=== PATIENT | male | born 1945 | race Caucasian/White ===

== ENCOUNTER 2017-08-26 11:10 | Outpatient (CLI) | payer MEDICARE, OTHER ==
[2017-08-26 11:58] LABS: Anion Gap 14 mmol/L (10-20); BUN (Urea Nitrogen) 12 mg/dL (8.4-25.7); Calc. Creatinine Clearance 0 mL/min (70-130); Calcium 9.3 mg/dL (7.8-10.44); Carbon Dioxide 27 mmol/L (23-31); Chloride 102 mmol/L (98-107); Estimated GFR-MDRD Greater than 90
--- NOTE | 2017-08-26 15:54 | ULT ---
RENAL ULTRASOUND: History: Renal cyst. Renal calculi. Comparison: 11-07-16 Technique: Longitudinal and transverse imaging of the kidneys is performed. FINDINGS: Right kidney: There is renal cortical thinning. No hydronephrosis. Right kidney measures 10.5 x 6.2 x 5.7 cm. There is an exophytic anechoic focus emanating from the midpole of the right kidney measur ing 1.6 x 1.7 x 2.5 cm. Through transmission is noted. Simple cyst is favored. Left kidney: Mild renal cortical thinning. No hydronephrosis. Left kidney measures 4.9 x 4.9 x 10.2 cm. There is a 1.4 x 1.1 x 1.3 cm exophytic hypoechoic focus emanating from the left renal cortex. C omparison made with examination from 04-03-16 demonstrates that the lesion in the left kidney has not changed in size. Previously the lesion measured 1.7 x 1.2 x 1.3 cm. Lesion does not have sonographic features compatible with a simple cyst. Correlation made with CT ab domen without contrast from 11-15-16 suggests possible complex cystic lesion. Continued surveillance i s recommended. Urinary bladder is unremarkable. IMPRESSION: 1. Essentially stable simple cyst in right kidney. 2. Stable slightly complex cystic lesion in the left kidney. POS: [facility]
--- NOTE | 2017-08-26 15:57 | RAD ---
ONE VIEW ABDOMEN: Comparison: 04-03-16 History: Neurogenic bladder. Frequent urination. Comparison: None. FINDINGS: Nonspecific bowel gas pattern. Fecal material in a nondistended, nondilated loop of colon. Pain pump is noted. Osseous structures are unremarkable. IMPRESSION: Nonspecific bowel gas pattern. No evidence of calcification projecting over either renal silhouette. Evaluation is limited by overlying bowel gas and fecal material. POS: [facility]
== END 2017-08-26 11:11 | disposition home or self-care (01) ==
LOC: RAD 11:10
PROVIDERS: ATTEND Urology
DX: N28.1 Cyst of kidney, acquired (principal); N31.9 Neuromuscular dysfunction of bladder, unspecified; Z87.442 Personal history of urinary calculi
CPT/HCPCS: 36415; 74000; 76770; 80048

== ENCOUNTER 2018-03-20 14:49 | Outpatient (CLI) | payer MEDICARE, OTHER | END 2018-03-20 14:50 | disposition home or self-care (01) | LOC: BICCT 14:49 | PROVIDERS: ATTEND Allergy & Immunology | DX: J32.9 Chronic sinusitis, unspecified (principal) ==

== ENCOUNTER 2018-05-27 08:43 | Outpatient (CLI) | payer MEDICARE, OTHER ==
[2018-05-27 09:56] LABS: Anion Gap 13 mmol/L (10-20); BUN (Urea Nitrogen) 11 mg/dL (8.4-25.7); Calc. Creatinine Clearance 0 mL/min (70-130); Calcium 9.5 mg/dL (7.8-10.44); Carbon Dioxide 30 mmol/L (23-31); Chloride 101 mmol/L (98-107); Estimated GFR-MDRD 85; Glucose 106 mg/dL (83-110); Potassium 3.6 mmol/L (3.5-5.1); Sodium 140 mmol/L (136-145)
--- NOTE | 2018-05-27 10:24 | ULT ---
ULTRASOUND RETROPERITONEUM COMPLETE: (RENAL) DATE: 05/27/18. HISTORY: A 73-year-old male. N31.9, neurogenic bladder. R35.0, frequency of urination and polyuria. Z87.442, history of renal calculi. N28.1, hyperdense renal cyst. FINDINGS: Right kidney 10.5 x 6 x 6.5 cm. Left kidney 10.5 x 5 x 5 cm. No hydronephrosis bilaterally. A 3 cm round simple cyst exophytically protruding from the cortex of right renal mid pole. 1.5 x 1 x 1 cm exophytic cyst protruding from upper pole cortex of left kidney. Unremarkable appearance of urinary bladder. Prevoid bladder volume 100 mL. Compared to renal ultrasound of 08/26/17, the right renal cyst has grown. It is currently demonstrat ed to be a simple cyst. The smaller, exophytic left renal cyst demonstrated on the current study may or may not be the same o ne as the one on the previous study. A followup CT would be useful, for more objective comparison with prior renal lesions of the prior CT of 11/15/16. IMPRESSION: 1. Bilateral renal cysts visualized on ultrasound, one on each side, with interval growth. 2. No aggressive features identified on ultrasound. 3. Consider followup CT, in order to account for additional cysts, and for more objective comparison of measurements of these lesions. GENIA Renee POS: [facility]
--- NOTE | 2018-05-27 10:29 | RAD ---
ABDOMEN ONE VIEW: History: Neurogenic bladder. Comparison: 08-26-17 FINDINGS: Large amount of stool throughout the colon. Small bowel gas pattern is nonspecific. Renal outlines mo stly obscured. No calcifications are reliably demonstrated along the course of either urinary system. Injection granulomata overlie the left gluteal tissues. Vertebroplasty cement at the T12 level. Osse ous structures are demineralized. IMPRESSION: 1. Constipation. 2. Osteoporosis. POS: [facility]
== END 2018-05-27 08:44 | disposition home or self-care (01) ==
LOC: ULT 08:43
PROVIDERS: ATTEND Urology
DX: N31.9 Neuromuscular dysfunction of bladder, unspecified (principal); N28.1 Cyst of kidney, acquired; K59.00 Constipation, unspecified; M81.0 Age-related osteoporosis without current pathological fracture; Z87.442 Personal history of urinary calculi
CPT/HCPCS: 36415; 74018; 76770; 80048

== ENCOUNTER 2019-05-27 12:20 | Outpatient (CLI) | payer MEDICARE, OTHER ==
--- NOTE | 2019-05-27 15:07 | MRI ---
MRI LUMBAR SPINE WITHOUT CONTRAST: INDICATION: Lumbar pain. FINDINGS: Comparison is made to MRI lumbar spine dated 11/15/2016. Vertebroplasty changes are now noted at T12 vertebra since the prior study. Mild superior end plate compression. There is a small node involving the superior end plate which was noted previously. The lumbar vertebrae maintain normal height. There are degenerative disk changes throughout. There is loss of disk space at L3-4, L4-5, and L5-S1. Anterolisthesis at L3-4 and L4-5 is noted and appear s stable from prior study. At T12-L1, no significant disk bulge or protrusion. No central canal or foraminal stenosis. At L1-2, no significant disk bulge. No central canal or foraminal stenosis. At L2-3, mild broad-based disk bugle is unchanged from prior exam. There is moderate facet and ligam entous hypertrophy and these changes result in mild central canal stenosis. At L3-4, there is an anterolisthesis measured at 4-5 mm, stable from prior exam. Disk bulge flattens the thecal sac. Facet and ligamentous hypertrophy is present. Mild to moderate central canal steno sis. No significant foraminal stenosis, although asymmetric disk bulge on the left does encroach int o the left foramina. At L4-5, there is a grade I anterolisthesis. Diffuse disk bulge with evidence of small central protr usion. These changes compress the thecal sac and are associated with posterior hypertrophic changes. Moderate central canal stenosis. Mild foraminal narrowing due to disk bulge, facet hypertrophy, an d the associated listhesis. At L5-S1, there is an annular fissure with a small focal disk protrusion paracentrally to the right f lattening the anterior thecal sac and slightly displacing the traversing right S1 nerve root. Mild c entral canal stenosis. This does not appear significantly changed from prior exam. IMPRESSION: 1. Degenerative disk changes at all levels of the lumbar spine at the level of L1. Anterolisthesis at L3-4 and L4-5 with central canal and foraminal stenosis described above. Small asymmetric protrus ion to the right at L5-S1 as noted above. 2. Vertebroplasty changes at T12 since the prior exam. Otherwise, no significant change in the appe arance of the lumbar spine. POS: [facility]
== END 2019-05-27 12:21 | disposition home or self-care (01) ==
LOC: SCSMRI 12:20
PROVIDERS: ATTEND Anesthesiology
DX: M51.17 Intervertebral disc disorders with radiculopathy, lumbosacral region (principal); M43.16 Spondylolisthesis, lumbar region; M48.061 Spinal stenosis, lumbar region without neurogenic claudication; M48.07 Spinal stenosis, lumbosacral region
CPT/HCPCS: 72148

== ENCOUNTER 2020-03-29 15:38 | Inpatient (IN) | payer MEDICARE, OTHER ==
[~2020-03-29 15:38] MED LIST: Iopamidol-370 76% 500 ML 1 ML ONE
[2020-03-29] MEDS ORDERED: Midazolam HCl 5 mg/ml Vial ONE ×2 (16:01→16:13)
[2020-03-29] MEDS ORDERED: Succinylcholine Chloride 20 MG/ML 10 ml SYRINGE FS ONE (16:01)
[2020-03-29] MEDS ORDERED: fentaNYL Citrate/PF 2,000 MCG in Sodium Chloride 0.9% 60 ML IV SCH (16:22)
[2020-03-29] MEDS ORDERED: Propofol 1,000 MG/100 ML VIAL IV ONE (16:29)
[2020-03-29 16:55] LABS: Actual Bicarbonate (HCO3a) 19.7 mEq/L (22-28); Base Excess (BEa) -3.5 mEq/L (-2.0 to +3.0); CO2 Tension 30.8 mmHg (35.0-45.0); Carboxyhemoglobin (COHb) 0.1 gm% (0.0-3.0); Hemoglobin (Hb) 14.2 g/dL (14.0-18.0); O2 Tension (PaO2), arterial 112.5 mmHg (> 70.0); pH, Arterial 7.42 (7.35-7.45)
[2020-03-29 16:56] LABS: Analyzer IN Cardio ER; Calcium, Ionized (arterial) 1.06 mmol/L (1.12-1.30); Potassium - ABG Lab 3.14 mmol/L (3.70-5.30); Puncture Site RRA
--- NOTE | 2020-03-29 19:01 | CT ---
CT HEAD WITHOUT IV CONTRAST COMPARISON: 03/29/2020 1231% HISTORY: Altered mental status. Follow-up evaluation. TECHNIQUE: Axial CT imaging at 5 mm intervals from vertex through skull base without contrast FINDINGS: Mild cerebral volume loss is present. There is no evidence of an acute infarction, hemorrhage, mass e ffect, or midline shift. The ventricular system is normal in size, shape, and position. Endotracheal and orogastric tubes are noted in place. The orogastric tube is coiled in the posterior pharynx. A mucus retention cyst is again seen in the right maxillary antrum. Mucosal thickening is seen involving the ethmoidal air cells bilaterally with minimal mucosal thickening in the right front al sinus. Osseous structures appear intact.There is evidence of anterior cervical fusion lower cervical spine. No other interval change from the prior exam. IMPRESSION: 1. No acute intracranial abnormality demonstrated.
--- NOTE | 2020-03-29 19:24 | CT ---
EXAM: CT chest, abdomen, and pelvis with IV contrast: HISTORY: Altered mental status. COMPARISON: Noncontrast CT abdomen and pelvis on 11/15/2016 FINDINGS: CT THORAX: Lungs: Dependent parenchymal densities are seen posteriorly at each lung base most likely attributabl e to atelectasis. Pneumonitis cannot be entirely excluded. Linear scarring versus atelectasis is present in the right upper lobe. Pleura: No pleural effusion. Lymph nodes: No lymphadenopathy. Mediastinum: Orogastric and endotracheal tubes are noted in place. Tip of the endotracheal tube termi nates just above the level of the rob. Tip of the orogastric tube is in the proximal body of the stomach. Vascular calcifications are seen in the thoracic aorta and involving the coronary arteries. The thoracic aorta is normal in caliber without evidence of an aortic dissection. Chest wall: No abnormalities CT ABDOMEN AND PELVIS: Liver: Within normal limits. Gallbladder: Distended measuring 11 cm in length. No adjacent inflammatory stranding is seen.\ Pancreas: Within normal limits. Spleen: Within normal limits. Adrenal glands: Within normal limits. Kidneys: A 2.9 cm exophytic hypodense lesion is seen at the junction of the midportion and superior p ole right kidney with smaller exophytic hypodense lesion seen anterior aspect midportion right kidney. These lesions were seen on the study in 2017; although, the larger lesion is slightly larger in size. The larger cyst lesion does not demonstrate an attenuation coefficient compatible with a simple cyst based on this exam. Small exophytic hypodense lesion is seen in the midportion left kidne y with additional subcentimeter too small to characterize hypodense lesions in the left kidney. This exophytic lesion is stable compared to prior exam. No enhancing lesion is appreciated. Urinary Bladder: Quintana catheter in place, the urinary bladder is decompressed. Reproductive organs: Within normal limits for patient's age. Bowel: Small amount retained fecal material seen throughout the colon. Loops of small bowel are zahraa l in caliber Adenopathy:No lymphadenopathy within the abdomen or pelvis. Peritoneum: No free fluid or fluid collection is seen. No free intraperitoneal gas is identified. Abdominal wall: A neural stimulating device is again seen overlying the soft tissues lower lateral ri ght flank with lead extending to the level of the T7 vertebral body Osseous structures: Vertebroplasty changes are seen involving the compression fracture of the T12 michelle tebral body. Degenerative change are seen in the lumbar spine, and there is grade 1 anterolisthesis of L3 on L4 and to a greater extent L4 on L5 with anterolisthesis at the L4-5 level measuring approxi mately 8 to 9 mm. There is partial visualization of postoperative changes related to anterior cervical fusion lower cervical spine. IMPRESSION: 1. Nonspecific distention of the gallbladder without adjacent inflammatory changes. 2. Bibasilar parenchymal densities most likely attributable to atelectasis. However, pneumonia at eit her lung base is a possibility. 3. Subcentimeter difficult to characterize hypodense lesions involving each kidney. There is a larger hypodense lesion midportion right kidney which is slightly larger in size compared to study in 2017. However, this does not demonstrate attenuation coefficient compatible with a simple cyst. Follo w-up CT scan examination with and without IV contrast is recommended. 4. Degenerative changes lumbar spine with grade 1 anterolisthesis of L3 on L4 and L4 on L5. 5. Additional findings as described above.
[2020-03-29] MEDS ORDERED: Azithromycin 500 MG VIAL ONE (19:47)
--- NOTE | 2020-03-29 20:50 | PDOC.HHP ---
Hospitalist HPI - History of Present Illness AMS, low grade fever 100.9 History of Present Illness: Patient with PMH of chronic pain and polypharmacy per EHR review presents to ED for evaluation of AMS. History is very limited due to clinical status; currently intubated as sedated. Per history obtained from son at bedside patient was noted this morning to be confused and somewhat lethargic. According to son to his knowledge patient had not been sick or had reported any kind of complaint. No known sick contacts or high risk exposures. During my assessment patient is sedated/intubated which was undertaken due to lethargy and anticipated airway compromise. Initial work up reports low grade temp of 100.9 rectally and slight elevation of troponin at 0.157. CT head is negative for acute pathology. CT chest show bilateral infiltrates atelectasis vs pneumonia. Hospitalist ROS - Review of Systems ROS unobtainable: due to endotracheal tube - Exam General - other findings: Intubated/sedated Eye: anicteric sclera ENT: normocephalic atraumatic, moist mucosa Neck: supple, no JVD Heart: RRR, no murmur, no gallops Respiratory: CTAB, normal chest expansion Gastrointestinal: soft, non-distended, normal bowel sounds Extremities: no cyanosis, no clubbing Extremities - other findings: Several areas of echymosis noted Skin: normal turgor Neurological - other findings: Sedated Musculoskeletal: normal tone Psychiatric - other findings: Sedated Hospitalist Results - Labs Lab results: ABG pH 7.42 (7.35-7.45) 03/29/20 16:50 ABG pCO2 30.8 mmHg (35.0-45.0) L 03/29/20 16:50 ABG pO2 112.5 mmHg (> 70.0) H 03/29/20 16:50 - Radiology Interpretation CT scan - chest Status: image reviewed by me (Bilateral infiltrates atelectasis vs pneumonia vs pneumonitis) Hospitalist H&P A/P - Plan Plan: Problem List 1. Altered mental status 2. Abnormal CT chest 3. Polypharmacy 4. History of chronic pain 5. S/p intubation 6. Elevated troponin Assessment and Plan 1. Altered mental status - admit to critical care; currently intubated/sedate - unclear etiology differentials include infectious vs polypharmacy vs other - IV ABX: Ceftriaxone, Vancomycin, Azithromycin to cover PNA & [employer] - follow up blood cultures, check pro-calcitonin - if fever spikes and pro-agustín elevated consider lumbar puncture 2. Abnormal CT chest - differentials include pneumonia vs atelectasis - continue with IV ABX per above plan - COVID19 rule out 3. Polypharmacy - polypharmacy remains in differential as cause of AMS - awaiting med reconciliation 4. History of chronic pain - holding PO medications - awaiting med reconciliation 5. S/p intubation - ABG in AM - weaning per protocol - pulmonary CC consulted 6. Elevated troponin - suspecting demand in setting of above - trend troponin DVT PPX: Lovenox FULL CODE
[2020-03-29] MEDS ORDERED: Acetaminophen 650 MG Suppository PR PRN (22:05)
[2020-03-29] MEDS ORDERED: Electrolyte Replacement Protoc 1 EACH EACH IVPB ONE (22:05)
[2020-03-29] MEDS ORDERED: Ondansetron PF 4 MG/2 ML Vial IVP PRN (22:05)
[2020-03-29] MEDS ORDERED: Ventilator Sedation Protocol 1 EACH FS SCH (22:15)
[2020-03-29] MEDS ORDERED: DISCONTINUE PREVIOUS NARCOTIC PAIN MEDICATIONS AND BENZODIAZEPINES FS SCH (22:22)
[2020-03-29] MEDS ORDERED: Propofol BOLUS 1,000 MG/100 ML VIAL IV PRN (22:22)
[2020-03-29] MEDS ORDERED: Lorazepam 2 MG/ML VIAL SLOW IVP PRN (22:22)
[2020-03-29] MEDS ORDERED: Fentanyl BOLUS 250 ML IVPB PRN (22:22)
[2020-03-29] MEDS ORDERED: Morphine 2 MG/ML SYRINGE SLOW IVP PRN (22:22)
[2020-03-29] MEDS ORDERED: Potassium Phosphate 12 MMOL in Sodium Chloride 0.9% 250 ML 250 ML IV PRN (22:27)
[2020-03-29] MEDS ORDERED: Potassium Chloride 20 MEQ TAB PO PRN (22:27)
[2020-03-29] MEDS ORDERED: Magnesium Oxide 400 MG TAB PO PRN ×2 (22:27)
[2020-03-29] MEDS ORDERED: Potassium Phosphate 9 MMOL in Sodium Chloride 0.9% 100 ML IVPB PRN (22:27)
[2020-03-29] MEDS ORDERED: PHOS-NAK 1 PKT PACK PO PRN ×2 (22:27)
[2020-03-29] MEDS ORDERED: Magnesium 2 GM/50 ML 2 GM in Premix Bag 1 BAG IVPB PRN (22:27)
[2020-03-29] MEDS ORDERED: Potassium Chloride 40 MEQ in Premix Bag 1 BAG IVPB PRN (22:27)
[2020-03-29] MEDS ORDERED: Potassium Chloride 40 MEQ in Sodium Chloride 0.9% 250 ML 250 ML IVPB PRN (22:27)
[2020-03-29] MEDS ORDERED: Potassium Phosphate 15 MMOL in Sodium Chloride 0.9% 250 ML 250 ML IV PRN (22:27)
[2020-03-29] MEDS ORDERED: ELECTROLYTE REPLACEMENT PROTOCOL FS PRN (22:27)
[2020-03-29 22:49] LABS: Troponin I 0.157 ng/mL (< 0.028)
[2020-03-29] MEDS: Propofol 1,000 MG/100 ML VIAL IV PRN (23:00)
[2020-03-29] MEDS ORDERED: Vancomycin 1.5 GRAM/300 ML BAG 1.5 GM in Premix Bag 1 BAG IVPB SCH (23:59)
[2020-03-30 00:15] VITALS: BMI 27.4
[2020-03-30 01:39] LABS: Vancomycin, Trough 5.5 ug/mL
[2020-03-30 01:55] LABS: CKMB 5.5 ng/mL (0-6.6)
[2020-03-30] MEDS: Vancomycin 1 GM in Premix Bag 1 BAG IVPB SCH ×2 (02:29→13:07)
[2020-03-30 04:01] LABS: Band 13 % (5-11); Hemoglobin 13.1 g/dL (14.0-18.0); Lymphocytes 19 % (21-51); MDiff Complete? YES; Mean Corpuscular HGB CONC 33.9 g/dL (32.0-36.0); Mean Corpuscular Volume 85.5 fL (78.0-98.0); Mean Platelet Volume 7.7 fL (7.4-10.4); Monocytes 12 % (0-10); Neutrophil 55 % (42-75); Platelet Count 282 thou/uL (130-400); Platelet Morphology Comment Appears Adequate; RBC Distribution Width 11.9 % (11.5-14.5); Red Blood Cell (RBC) Count 4.52 mill/uL (4.70-6.10)
[2020-03-30 04:05] LABS: ALT (SGPT) 12 U/L (8-55); AST (SGOT) 29 U/L (5-34); Albumin 3.6 g/dL (3.4-4.8); Alkaline Phosphatase 62 U/L (40-110); Anion Gap 13 mmol/L (10-20); BUN (Urea Nitrogen) 9 mg/dL (8.4-25.7); Bilirubin, Total 0.7 mg/dL (0.2-1.2); Calc. Creatinine Clearance 101 mL/min (70-130); Calcium 8.2 mg/dL (7.8-10.44); Carbon Dioxide 21 mmol/L (23-31); Chloride 108 mmol/L (98-107); Estimated GFR-MDRD Greater than 90; Globulin 2.7 g/dL (2.4-3.5); Glucose 113 mg/dL (83-110); Protein, Total 6.3 g/dL (5.8-8.1); Sodium 139 mmol/L (136-145)
[2020-03-30 04:11] LABS: Potassium 2.7 mmol/L (3.5-5.1)
[2020-03-30] MEDS: Propofol 1,000 MG/100 ML VIAL IV PRN ×2 (04:44→09:59)
[2020-03-30 07:36] LABS: Actual Bicarbonate (HCO3a) 18.8 mEq/L (22-28); Base Excess (BEa) -3.2 mEq/L (-2.0 to +3.0); Calcium, Ionized (arterial) 1.14 mmol/L (1.12-1.30); Hemoglobin (Hb) 12.9 g/dL (14.0-18.0); O2 Tension (PaO2), arterial 94.1 mmHg (> 70.0); Potassium - ABG Lab 3.62 mmol/L (3.70-5.30); pH, Arterial 7.48 (7.35-7.45)
[2020-03-30 07:38] LABS: CO2 Tension 25.6 mmHg (35.0-45.0); Puncture Site RRA
--- NOTE | 2020-03-30 08:08 | RAD ---
EXAM: Single view of the chest HISTORY: Altered mental status. Ventilated patient with respiratory failure COMPARISON: 03/29/2020 FINDINGS: Single view of the chest shows a normal sized cardiomediastinal silhouette. Lines and tube s are unchanged in position. Linear opacities in the lung bases may represent atelectasis or scarring. There is no evidence of consolidation, mass, or pleural effusion. Hardware seen in the cer vical spine. IMPRESSION: Stable exam
[2020-03-30] MEDS ORDERED: Vancomycin HCl 1.5 GM in Sodium Chloride 0.9% 250 ML 300 ML IVPB SCH (09:00)
--- NOTE | 2020-03-30 09:29 | CON ---
DATE OF CONSULTATION: HISTORY OF PRESENT ILLNESS: Darern Simmons is a 74-year-old gentleman, became encephalopathic yesterday. He has some kind of an intrathecal morphine pump. As per the history, worsening confusion, given Ativan, he was intubated. CT of head was done in [place], which apparently was negative, and he was transferred here. He became additionally agitated. Repeat CT of chest, abdomen, and pelvis was done. No specific findings were done except questionable bibasilar atelectatic changes. He is now in the ICU, intubated. Coronavirus test was ordered, results will take several hours before we get back. Additional information is that he has been here before. He is from the [place] area. Unclear who his primary care physician is, in the process of talking to his at this stage. PAST MEDICAL HISTORY: Presents with chronic pain issues, back pain. No additional history at this time that will be able to assess. It looks like he has previous renal stents placed in. SOCIAL HISTORY: No alcohol or tobacco abuse. HOME MEDICATIONS: Include: 1. Methocarbamol. 2. Omeprazole 40. 3. Amitriptyline 100. ALLERGIES: NONE. REVIEW OF SYSTEMS: Otherwise, unobtainable. PHYSICAL EXAMINATION: VITAL SIGNS: Pulse 70, blood pressure 97/60, respirations 12, sats his maximum temperature has been 98. CHEST: No wheezing. No crackles. CARDIAC: Normal S1 and S2. No gallops. ABDOMEN: No masses. LABORATORY DATA: White count 16,000, H and H 13 and 38, platelet count 282. His pO2 is 94, pCO2 potassium 2.7. Otherwise, lytes are normal. Troponin is normal. It is noted that his chest x-ray did not show any acute infiltrates, some bibasilar atelectasis. CT of head shows no acute changes. CT of abdomen also is negative. ASSESSMENT: Metabolic encephalopathy, etiology unclear; chronic pain syndrome; chronic pain pump. We will try and get additional information from the . Once coronavirus test comes back, we will start weaning. Consider extubation in next 24 to 48 hours. In the meantime, IV fluids, supportive care. This is a 45-minute critical care time. Job ID: [id number]
[2020-03-30 09:34] LABS: Potassium 3.2 mmol/L (3.5-5.1)
[2020-03-30] MEDS: Famotidine/PF 20 mg/2ml Vial SLOW IVP SCH ×2 (09:59→20:49)
[2020-03-30] MEDS: Enoxaparin Sodium 40 MG/0.4 ML SYRINGE SC SCH (09:59)
[2020-03-30] MEDS: Sodium Chloride 0.9% 1,000 ML IV SCH ×2 (10:01→20:48)
[2020-03-30 12:49] LABS: SARS-CoV-2 MS2 Positive; SARS-CoV-2 N Gene Negative; SARS-CoV-2 S Gene Negative; SARS-CoV-2 orf1ab Negative
[2020-03-30 12:56] VITALS: BP 90/54
[2020-03-30] MEDS: Hydrocortisone Sod Succ/PF 100 mg/2 ml Vial IVP SCH ×2 (13:08→17:32)
[2020-03-30] MEDS ORDERED: DC Sedation Protocol FS ONE (13:54)
--- NOTE | 2020-03-30 14:10 | PDOC.HOSPP ---
- Subjective Encounter Date: 03/30/20 Encounter Time: 12:00 Subjective: is on vent, not in distress - Objective Vital Signs & Weight: Vital Signs (12 hours) Temp Pulse Resp BP Pulse Ox 03/30/20 13:55 69 12 96 03/30/20 12:55 62 90/54 L 03/30/20 12:00 12 03/30/20 10:42 64 89/55 L 03/30/20 10:00 12 03/30/20 09:00 97.6 F 03/30/20 08:00 12 100 03/30/20 07:08 67 121/72 03/30/20 06:00 12 03/30/20 04:00 12 03/30/20 03:00 98.8 F 03/30/20 02:09 68 Weight Weight 175 lb 5 oz Most Recent Monitor Data Heart Rate from ECG 64 NIBP 81/53 NIBP BP-Mean 62 Respiration from ECG 17 SpO2 100 I&O: 03/29/20 03/30/20 03/31/20 06:59 06:59 06:59 Intake Total 372 Output Total 380 220 Balance -8 -220 Result Diagrams: 03/30/20 03:26 03/30/20 09:08 Hospitalist ROS - Medication Medications: Active Medications Generic Name Dose Route Start Last Admin Trade Name Freq PRN Reason Stop Dose Admin Enoxaparin Sodium 40 mg 03/30/20 09:00 03/30/20 09:59 Lovenox SC 40 mg 0900 KERI Administration Famotidine 20 mg 03/30/20 09:00 03/30/20 09:59 Pepcid SLOW IVP 20 mg Q12HR KERI Administration Hydrocortisone Sodium Succinate 50 mg 03/30/20 12:00 03/30/20 13:08 Solu-Cortef IVP 04/06/20 12:01 50 mg Q6HR KERI Administration Potassium Chloride 40 meq/ 270 mls @ 135 mls/hr 03/29/20 22:27 03/30/20 04:42 Sodium Chloride IVPB 270 mls ASDIR PRN Administration FOR SERUM K+ 2.5 - 3.5 Potassium Chloride 40 meq/ 100 mls @ 50 mls/hr 03/29/20 22:27 03/30/20 13:08 Device IVPB 100 mls ASDIR PRN Administration FOR SERUM K+ 2.5 - 3.5 Sodium Chloride 1,000 mls @ 100 mls/hr 03/30/20 09:00 03/30/20 10:01 Normal Saline 0.9% IV 1,000 mls .Q10H KERI Administration Propofol 1,000 mg 03/29/20 22:22 03/30/20 09:59 Diprivan IV 04/28/20 22:22 1,000 mg INF PRN Administration TO ACHIEVE GOAL RASS Protocol - Exam Eye: PERRL, anicteric sclera ENT: normocephalic atraumatic, dry oral mucosa Neck: supple, no JVD Heart: RRR Respiratory: normal chest expansion, no tachypnea Gastrointestinal: soft, non-distended, normal bowel sounds Extremities: no cyanosis, no edema Neurological: cranial nerve grossly intact, no focal deficits Hosp A/P (1) Acute respiratory failure with hypoxia Code(s): J96.01 - ACUTE RESPIRATORY FAILURE WITH HYPOXIA Status: Acute (2) Acute metabolic encephalopathy Code(s): G93.41 - METABOLIC ENCEPHALOPATHY Status: Acute (3) Chronic pain syndrome Code(s): G89.4 - CHRONIC PAIN SYNDROME Status: Chronic (4) Demand ischemia of myocardium Code(s): I24.8 - OTHER FORMS OF ACUTE ISCHEMIC HEART DISEASE Status: Acute (5) Polypharmacy Code(s): Z79.899 - OTHER SHIRT TURNER (CURRENT) DRUG THERAPY Status: Chronic (6) Metabolic acidosis Code(s): E87.2 - ACIDOSIS Status: Acute (7) Hypotension Status: Acute Qualifiers: Hypotension type: unspecified hypotension type Qualified Code(s): I95.9 - Hypotension, unspecified - Plan weaning per pulm advice covid 19 is -ve is on steroids, nebs, iv fluids on ceftriaxone, zithromax and vanc hemostable
[2020-03-30 16:14] LABS: Bilirubin Negative (Negative); Blood, Urine Negative (Negative); Clarity Clear (Clear); Glucose, Urine (Dipstick) Normal (Negative); Leukocyte 75 Leu/uL (Negative); Nitrite Negative (Negative); Protein, Urine (Dipstick) Negative (Neg-Trace); RBC/HPF 0-3 HPF (0-3); Squamous Epithelial None Seen HPF (0-3); Urobilinogen Normal mg/dL (Less than 2)
[2020-03-30 16:16] LABS: Bacteria/HPF 1+ HPF (None Seen)
[2020-03-30] MEDS ORDERED: Azithromycin 500 MG in Sodium Chloride 0.9% 250 ML 250 ML IVPB SCH (20:00)
[2020-03-30] MEDS ORDERED: cefTRIAXone\\ROCEPHIN 2 GM in Sodium Chloride 0.9% 100 ML IVPB SCH (23:00)
[2020-03-31] MEDS: Hydrocortisone Sod Succ/PF 100 mg/2 ml Vial IVP SCH ×2 (00:02→05:53)
[2020-03-31 00:18] LABS: Vancomycin, Trough 13.6 ug/mL
[2020-03-31 04:21] LABS: Band 2 % (5-11); Hemoglobin 13.3 g/dL (14.0-18.0); Hypochromia SLIGHT = 6-15 cells (100X) (0-5/hpf); Lymphocytes 4 % (21-51); MDiff Complete? YES; Mean Corpuscular HGB CONC 32.5 g/dL (32.0-36.0); Mean Corpuscular Hemoglobin 28.3 pg (27.0-31.0); Mean Corpuscular Volume 87.2 fL (78.0-98.0); Mean Platelet Volume 7.8 fL (7.4-10.4); Monocytes 4 % (0-10); Neutrophil 90 % (42-75); Platelet Count 302 thou/uL (130-400); Platelet Morphology Comment Appears Adequate; Red Blood Cell (RBC) Count 4.71 mill/uL (4.70-6.10); White Blood Cell (WBC) Count 12.6 thou/uL (4.8-10.8)
[2020-03-31] MEDS: Sodium Chloride 0.9% 1,000 ML IV SCH (05:50)
[2020-03-31] MEDS ORDERED: HYDROcodone/Acetaminophen 10/325 mg Tablet PO PRN (08:46)
[2020-03-31] MEDS ORDERED: Polyethylene Glycol 3350 17 GM Packet PO PRN (08:46)
[2020-03-31] MEDS ORDERED: Methocarbamol 500 MG TAB PO PRN (08:46)
[2020-03-31] MEDS ORDERED: Azithromycin 250 MG TAB PO SCH (09:00)
[2020-03-31] MEDS ORDERED: Gabapentin 300 MG CAP PO SCH (09:00)
[2020-03-31] MEDS ORDERED: Tamsulosin HCl 0.4 MG CAP PO SCH (09:00)
--- NOTE | 2020-03-31 09:12 | PRG ---
DATE OF SERVICE: 03/31/2020 SUBJECTIVE: Darren Simmons is a 74-year-old gentleman who was extubated yesterday, is no longer encephalopathic. OBJECTIVE: VITAL SIGNS: His sats are 98% on room air, pulse 84. In fact his blood pressure is much improved 155/86. A cortisol level was 8 with low blood pressure, he may have had a relative adrenal insufficiency that is much improved. GENERAL: He is oriented to place, but denies any fever or chills. CHEST: Decreased breath sounds. No wheezing. CARDIAC: Normal S1, S2. ABDOMEN: No masses. ASSESSMENT: 1. Metabolic encephalopathy, etiology unclear, possibly medication related. He says he has a new prescription for amitriptyline. 2. Chronic pain syndrome, febrile illness. All cultures negative. Switch over to oral medication. PT, supportive care. Will be transferred out of the ICU, eventually home. Pulmonary to follow at a distance. Job ID: [id number]
[2020-03-31] MEDS: Enoxaparin Sodium 40 MG/0.4 ML SYRINGE SC SCH (09:42)
[2020-03-31] MEDS: Famotidine/PF 20 mg/2ml Vial SLOW IVP SCH (09:42)
[2020-03-31 09:47] VITALS: TEMP 98.5
--- NOTE | 2020-03-31 15:59 | DIS ---
DATE OF ADMISSION: 03/29/2020 DATE OF DISCHARGE: 03/31/2020 DISCHARGE DISPOSITION: Home. PRIMARY DISCHARGE DIAGNOSES: 1. Acute respiratory failure with hypoxia on admission, resolved. 2. Acute metabolic encephalopathy likely due to medication, resolved. 3. Chronic pain syndrome with fentanyl pain pump as well. 4. Demand ischemia secondary to above, resolved. 5. Polypharmacy, metabolic acidosis, resolved. 6. Hypotension on admission, resolved. PROCEDURES DONE DURING HOSPITALIZATION: CT brain without contrast done showed no acute intracranial abnormality. CT chest, abdomen, and pelvis with IV contrast done showed nonspecific distention of the gallbladder. The patient has had hypodense lesions in both kidneys for outpatient followup and these likely are cyst, but needs follow up in the outpatient setting in the next 3 to 4 months, has degenerative changes in the lumbar spine, had a white count of 16 on the day of admission with platelet count of 282, 55% neutrophils, 13% bands, 19% lymphocytes. Troponin was peaking up to 0.17. Serum cortisol was 8.5 at 9 a.m. COVID-19 PCR was negative. Blood cultures x2, no growth. DISCHARGE MEDICATIONS: 1. [place] 10/325 mg two tabs p.o. q.6 hourly p.r.n. 2. Neurontin 300 mg p.o. 3 times daily. 3. Methocarbamol 750 mg q.4 hourly p.r.n. 4. MiraLAX 17 g daily p.r.n. 5. Flomax 0.4 mg p.o. daily. 6. Albuterol inhaler q.6 hourly p.r.n. 7. Zithromax 250 mg p.o. daily for another 3 days. ALLERGIES: NO KNOWN DRUG ALLERGIES. INPATIENT CONSULT: Dr. Chamberlain for Pulmonology. DISCHARGE PLAN: The patient to follow up with his Pain specialist Dr. Luke in 1 week. He has no primary care physician. BRIEF COURSE DURING HOSPITALIZATION: The patient initially was admitted on the after he was found to be in altered mentation. He also had a fever of 100 degrees. The patient was intubated to maintain airway. He was admitted to ICU and was placed on broad-spectrum antibiotics. Initial CT chest was suspicious for possible atelectasis versus pneumonia. He was placed on broad-spectrum antibiotics and a COVID-19 PCR was obtained. His COVID-19 PCR was negative. The patient was extubated on the . He was observed for another 24 hours. He is fully oriented at the time of discharge. The patient recently started amitriptyline and likely might be the cause for his altered mentation on admission in addition to him being on multiple narcotics including fentanyl pain pump. He was counseled with regard to medication compliance, and he and his were educated about narcotic overdoses. He has otherwise remained hemodynamically stable, ambulating with a walker and eating well prior to discharge. Please note, I have seen and examined the patient on the day of discharge. Job ID: [id number]
--- NOTE | 2020-04-02 10:29 | PDOC.EVN ---
Event Note - Event Note Event Note: Was informed about 1/2 gram + cocci result on Darren Simmons. Informed Dr. Flores, attending that discharged patient who stated no further action needed at this time.
--- NOTE | 2020-04-05 14:38 | RAD ---
PORTABLE CHEST ONE VIEW: 03/29/20 at 4:28 p.m. HISTORY: Respiratory failure FINDINGS/IMPRESSION: Exam is submitted for interpretation on 04/05/20 at 2:28 p.m. There has been interval placement of an endotracheal tube with tip about 2 cm above the level of the rob. A nasogastric tube has also been placed with tip in the gastric fundus since the earlier exam of 12:44 p.m. from the same date. Linear streaky changes in the left lung base are again noted. No p neumothoraces are seen. POS: [facility]
== END 2020-03-31 10:50 | disposition home or self-care (01) | DRG 208 ==
LOC: ERS 15:38 → CCU 21:27
PROVIDERS: ADMIT Internal Medicine; ATTEND Internal Medicine
PROC: 0BH17EZ Insertion of Endotracheal Airway into Trachea, Via Natural or Artificial Opening (ICD-10-PCS; principal; 2020-03-29)
PROC: 5A1935Z Respiratory Ventilation, Less than 24 Consecutive Hours (ICD-10-PCS; 2020-03-29)
PROC: 8E0ZXY6 Isolation (ICD-10-PCS; 2020-03-29)
DX: J96.01 Acute respiratory failure with hypoxia (principal); G92 Toxic encephalopathy; R40.2122 Coma scale, eyes open, to pain, at arrival to emergency department; R40.2212 Coma scale, best verbal response, none, at arrival to emergency department; R40.2342 Coma scale, best motor response, flexion withdrawal, at arrival to emergency department; I24.8 Other forms of acute ischemic heart disease; E87.2 Acidosis; Z20.828 Contact with and (suspected) exposure to other viral communicable diseases; G89.4 Chronic pain syndrome; I95.9 Hypotension, unspecified; T43.015A Adverse effect of tricyclic antidepressants, initial encounter; Z79.899 Other long term (current) drug therapy
CPT/HCPCS: 31500; 36415; 70450; 71045; 71260; 74177; 80053; 80202; 82533; 82553; 82805; 84145; 85007; 85027; 87635; 94002; 94003; 96365; 96366; 96375; J0456; J0696; J1650; J1720; J2250; J2704; J3010; J3370; J3480; J3490; J7050; Q9967; S0028; U0003

== ENCOUNTER 2020-05-16 10:51 | Outpatient (CLI) | payer MEDICARE, OTHER ==
--- NOTE | 2020-05-16 11:42 | ULT ---
ULTRASOUND RETROPERITONEUM COMPLETE: (RENAL) DATE: 05/16/2020 HISTORY: 75-year-old male with renal cyst, renal calculi, and urinary retention. FINDINGS: Right kidney: 10.5 x 6 x 4.5 cm. Left kidney: 10.5 x 5.5 x 5 cm. No hydronephrosis bilaterally. 3 x 3 x 2.5 cm partially exophytic cyst right renal upper pole. This is the one that was called into question on CT report of 03/29/2020. 1 x 1.5 x 1 cm exophytic cyst left renal midpole posterolaterally. Urinary bladder volume is small, 20 mL at time of scan (patient self catheterized prior to ultrasound ). Renal parenchyma is thin, not unusual for age. IMPRESSION: 1) bilateral renal cysts, at least one on each side. 2) no renal neoplasm identified.
== END 2020-05-16 10:52 | disposition home or self-care (01) ==
LOC: ULT 10:51
PROVIDERS: ATTEND Urology
DX: N20.0 Calculus of kidney (principal); R33.9 Retention of urine, unspecified; N28.1 Cyst of kidney, acquired
CPT/HCPCS: 76770

== ENCOUNTER 2020-09-14 12:47 | Outpatient (CLI) | payer MEDICARE, OTHER ==
--- NOTE | 2020-09-14 14:48 | MRI ---
EXAM: MRI Pelvis WO Con DATE: 09/14/2020 1:45 PM INDICATION: History of mid back pain and pain pump COMPARISON: CT of the chest abdomen and pelvis dated March 29, 2020 FINDING: Please see the separately performed, separately dictated MR the lumbar spine. Findings conc erning the L5-S1 intervertebral level. Motion artifact heavily limits image detail. No appreciable sacral neural foraminal narrowing is demo nstrated. No intrapelvic mass is noted. No lymphadenopathy is evident. No free fluid is noted. No marrow signal abnormality is evident. There is mild degenerative change of the SI joints. No acute fr acture is demonstrated. IMPRESSION:Mild degenerative change of the SI joints. No acute osseous abnormality.
--- NOTE | 2020-09-14 14:58 | MRI ---
MRI LUMBAR SPINE NONCONTRAST: HISTORY: Lumbar radiculopathy and spondylosis. Mid back pain. Pain pump. COMPARISON: 05/27/2019. COMPARISON: Chest, abdomen, and pelvic CT 03/29/2020. FINDINGS: T1 and T2 hypointensity at the T12 level compatible with vertebroplasty change. No significant loss i n vertebral body height. Appropriate T1 marrow signal intensity of the lumbar vertebrae. There are hemangiomas at L4 which are unchanged. Type II Modic changes at the L3-L4 disc space and L4-L5 disc s pace. Type I Modic changes at L5-S1. Appropriate signal intensity of the paraspinal muscles. Conus medullaris terminates at the inferior aspect of T12. Appropriate signal intensity visualized solid organs. Spinal listhesis: 1.5 mm of anterolisthesis of L2 upon L3. 6.3 mm ventricles is of L3 upon L4. 7.5 mm of anterolisthesis of L4 upon L5. 3.3 mm occlusive L5 upon S1. T12-L1:Adequate disc hydration. No significant central canal stenosis or significant neural foraminal narrowing. L1-L2:Adequate disc hydration. No significant central canal stenosis or significant neural foraminal narrowing. L2-L3:Disc desiccation with mild loss of disc space height. Broad-based disc bulge, ligamentum flavum thickening and facet hypertrophy result in mild central canal stenosis. Mild bilateral neural foraminal narrowing. L3-L4:T2 hyperintensity along the posterior aspect of the disc may represent a significant annular fi ssure. There is a broad-based disc bulge, ligament flavum thickening and facet hypertrophy. There is moderate central canal stenosis. The degree of central canal stenosis has progressed. Mild bilater al neural foraminal narrowing. L4-L5:Disc desiccation with mild loss of disc space height. Broad-based disc bulge with a central/lef t subarticular disc herniation. There is narrowing of the left subarticular zone with partial obscuration of the traversing left L5 nerve root. The degree of central canal stenosis is similar to the previous examination. The degree of obscuration of the traversing left L5 nerve root is also unchanged. There is stable contact upon the traversing right L5 nerve root without obscuration. Mild bilateral neural foraminal narrowing. L5-S1:Disc desiccation with moderate loss of disc space height. Broad-based disc bulge with a right s ubarticular disc herniation, stable. Stable mass effect and partial obscuration of the traversing right S1 nerve root. No significant stenosis of the thecal sac. Moderate right and [id number] l eft neural foraminal narrowing. IMPRESSION: 1. Redemonstration of multilevel spondylolisthesis. 2. Stable narrowing of the right subareolar zone at L5-S1. 3. Progression of degenerative disc disease with disc increased central canal stenosis at L4-L5. Stab le narrowing of bilateral subarticular zones at L4-L5. Partial obscuration of the traversing left L5 nerve root, unchanged. 4. Interval development of a T2 and STIR hyperintensity involving the posterior half of the L3 disc s pace. A long segment annular fissure is suspected. Transcribed Date/Time: 09/14/2020 3:16 PM
== END 2020-09-14 12:48 | disposition home or self-care (01) ==
LOC: MRI 12:47
PROVIDERS: ATTEND Anesthesiology
DX: M47.27 Other spondylosis with radiculopathy, lumbosacral region (principal); M43.16 Spondylolisthesis, lumbar region; M51.36 Other intervertebral disc degeneration, lumbar region; M48.061 Spinal stenosis, lumbar region without neurogenic claudication; R93.7 Abnormal findings on diagnostic imaging of other parts of musculoskeletal system; M53.3 Sacrococcygeal disorders, not elsewhere classified
CPT/HCPCS: 72148; 72195

== ENCOUNTER 2022-01-17 15:13 | Outpatient (CLI) | payer MEDICARE, OTHER | END 2022-01-17 15:14 | disposition home or self-care (01) | LOC: BICULT 15:13 | PROVIDERS: ATTEND Urology | DX: N31.9 Neuromuscular dysfunction of bladder, unspecified (principal); N28.1 Cyst of kidney, acquired; R33.9 Retention of urine, unspecified; R93.422 Abnormal radiologic findings on diagnostic imaging of left kidney | CPT/HCPCS: 76770 ==

== ENCOUNTER 2022-07-30 10:18 | Outpatient (CLI) | payer MEDICARE, OTHER ==
[2022-07-30] MEDS ORDERED: Iopamidol-370 76% 500 ML 1 ML ONE (14:32)
== END 2022-07-30 10:19 | disposition home or self-care (01) ==
LOC: BICCT 10:18
PROVIDERS: ATTEND Urology
DX: N28.1 Cyst of kidney, acquired (principal); N20.0 Calculus of kidney; R33.9 Retention of urine, unspecified; R93.422 Abnormal radiologic findings on diagnostic imaging of left kidney
CPT/HCPCS: 74178; 82565; Q9967